=== PATIENT | female | born 1950 | race Caucasian/White ===

== ENCOUNTER 2017-09-17 17:56 | Inpatient (IN) | payer MEDICARE ==
[~2017-09-17] VITALS: Ht 160 cm; Wt 84.1 kg
[2017-09-17] MEDS ORDERED: ondansetron/PF 4mg/2ml inj IV ONE (18:10)
[2017-09-17] MEDS ORDERED: normal saline 1000ML IV soln IV ONE (18:10)
[2017-09-17] MEDS ORDERED: HYDROmorphone 1 mg/ml syringe IV ONE (18:10)
[2017-09-17] MEDS ORDERED: ampicillin/sulbac 3gm/NS 100ml 100 ML IV ONE (18:45)
[2017-09-17 19:41] LABS: INR 1.1 INR; PARTIAL THROMBOPLASTIN TIME 28 SECONDS (22-32); PROTHROMBIN TIME 11.3 SECONDS (9.0-12.0)
[2017-09-17] MEDS ORDERED: magnesium hydroxide 30ml (MOM) UD suspension PO PRN (21:20)
[2017-09-17] MEDS ORDERED: HYDROmorphone 1 mg/ml syringe IV PRN ×2 (21:20)
[2017-09-17] MEDS ORDERED: mag hydrox/Alum hydrox/simeth 30ml oral suspension PO PRN (21:20)
[2017-09-17] MEDS ORDERED: ondansetron/PF 4mg/2ml inj IV PRN (21:20)
[2017-09-17] MEDS ORDERED: OXYC20TA71 PO (21:30)
[2017-09-17] MEDS ORDERED: PRAZ5CAP PO (21:30)
[2017-09-17] MEDS ORDERED: TEMA30CA5 PO (21:30)
[2017-09-17] MEDS ORDERED: DIPH-423 PO (21:30)
[2017-09-17] MEDS ORDERED: PRAZ5CAP2 PO (21:37)
[2017-09-17] MEDS ORDERED: DIPH25CA83 PO (21:37)
[2017-09-17] MEDS ORDERED: ALBU0.63 NEB (21:37)
[2017-09-17] MEDS ORDERED: CETI10TA15 PO (21:42)
[2017-09-17] MEDS ORDERED: TIOT18CA3 (21:42)
[2017-09-17] MEDS ORDERED: HYDR-3686 PO (21:42)
[2017-09-17] MEDS ORDERED: PALI3TAB PO ×2 (21:42)
[2017-09-17] MEDS: normal saline 1000ml 1,000 ML IV SCH (21:49)
[2017-09-18] VITALS (18 sets, daily range): BP systolic 100–140; BP diastolic 62–87
[2017-09-18] MEDS ORDERED: hydrOXYzine 25 MG tablet PO PRN (01:05)
[2017-09-18 05:29] LABS: BASOPHILS % (AUTO) 0.3 % (0-1); EOSINOPHILS # (AUTO) 0.1 X10'3 (0-0.9); EOSINOPHILS % (AUTO) 1.1 % (0-6); HEMATOCRIT 29.2 % (35.0-45.0); HEMOGLOBIN 9.7 g/dl (12.0-16.0); LYMPHOCYTES # (AUTO) 1.2 X10'3 (1.1-4.8); MEAN CORPUSCULAR HGB CONC 33.4 % (33.0-36.5); MEAN CORPUSCULAR VOLUME 86.8 FL (78-98); MEAN PLATELET VOLUME 8.6 FL (7.4-10.4); MONOCYTES # (AUTO) 0.8 X10'3 (0-0.9); MONOCYTES % (AUTO) 9.2 % (2-12); NEUTROPHILS # (AUTO) 6.9 X10'3 (1.8-7.7); NEUTROPHILS % (AUTO) 76.4 % (42-75); PLATELET COUNT 232 X10'3 (140-440); RED BLOOD COUNT 3.36 X10'6 (4.20-5.60); RED CELL DISTRIBUTION WIDTH 13.4 % (11.5-14.5); WHITE BLOOD COUNT 9.1 X10'3 (4.5-11.0)
[2017-09-18 05:50] LABS: ALANINE AMINOTRANSFERASE 100 U/L (12-78); ALBUMIN 3.3 G/DL (3.4-5.0); ALBUMIN/GLOBULIN RATIO 0.9 (1.1-1.5); ALKALINE PHOSPHATASE 153 IU/L (46-116); ANION GAP 9 (8-16); ASPARTATE AMINO TRANSFERASE 44 U/L (10-37); BILIRUBIN,TOTAL 2.1 MG/DL (0.1-1.0); BLOOD UREA NITROGEN 22 MG/DL (7-18); BUN/CREATININE RATIO 24.7 (6.6-38.0); CALCIUM 8.7 MG/DL (8.5-10.1); CHLORIDE 100 MMOL/L (99-107); CREATININE 0.89 MG/DL (0.40-0.90); GLUCOSE 116 MG/DL (70-104); POTASSIUM 3.4 MMOL/L (3.5-5.1); SODIUM 137 MMOL/L (135-145); TOTAL CARBON DIOXIDE 27.6 MMOL/L (24-32); eGFR 63 ML/MIN
[2017-09-18] MEDS: prazosin 5mg capsule PO SCH (07:58)
[2017-09-18] MEDS: cetirizine 10mg tablet PO SCH (07:59)
[2017-09-18] MEDS ORDERED: PALIPERIDONE PO SCH (08:00)
[2017-09-18] MEDS: normal saline 1000ml 1,000 ML IV SCH ×2 (08:00→21:36)
[2017-09-18] MEDS ORDERED: magnesium 2GM in 50ml NS 50 ML IV PRN (09:35)
[2017-09-18] MEDS ORDERED: potassium Cl 40MEQ/NS 500ml 500 ML IV PRN ×2 (09:35)
[2017-09-18] MEDS ORDERED: magnesium 4gm in 100ml NS 100 ML IV PRN (09:35)
[2017-09-18] MEDS ORDERED: potassium Cl 20 mEq SR tablet PO PRN (09:35)
[2017-09-18] MEDS ORDERED: magnesium Cl slow-release 64mg tablet PO PRN (09:35)
[2017-09-18] MEDS: potassium Cl 20 mEq SR tablet PO PRN ×2 (10:02→16:50)
[2017-09-18] MEDS ORDERED: meperidine/PF 100mg/ml syringe ONE (10:08)
[2017-09-18] MEDS ORDERED: LIDOcaine Viscous 15ml cup ONE (10:09)
[2017-09-18] MEDS ORDERED: levoFLOXACIN-Levaquin 500mg/D5 100 ML IV ONE (10:09)
[2017-09-18] MEDS ORDERED: MIDAZolam 1mg/ml 10ml vial ONE (10:09)
[2017-09-18] MEDS ORDERED: fentaNYL/PF 50MCG/1 ML 2ML syringe ONE (10:09)
[2017-09-18] MEDS ORDERED: diphenhydrAMINE 50 mg/ml inj ONE (10:09)
[2017-09-18] MEDS ORDERED: glucagon, human recombinant 1mg kit ONE (10:10)
[2017-09-18] MEDS ORDERED: iohexol 300 MG/1 ML 50ml polymer ONE (10:10)
[2017-09-18] MEDS: levoFLOXACIN-Levaquin 500mg/D5 100 ML IV SCH (14:23)
[2017-09-18] MEDS ORDERED: PALIPERIDONE 3 MG TAB.ER.24 PO SCH (21:00)
[2017-09-18] MEDS: temazepam 15mg capsule PO SCH (21:00)
[2017-09-19] VITALS: BP 130/81
[2017-09-19] MEDS: temazepam 15mg capsule PO SCH (01:41)
[2017-09-19] MEDS: normal saline 1000ml 1,000 ML IV SCH (03:18)
[2017-09-19 05:43] LABS: BASOPHILS % (AUTO) 0.4 % (0-1); EOSINOPHILS # (AUTO) 0.3 X10'3 (0-0.9); EOSINOPHILS % (AUTO) 5.4 % (0-6); HEMATOCRIT 24.9 % (35.0-45.0); HEMOGLOBIN 8.3 g/dl (12.0-16.0); LYMPHOCYTES % (AUTO) 33.9 % (21-51); MEAN CORPUSCULAR HEMOGLOBIN 28.7 PG (27.0-31.0); MEAN CORPUSCULAR HGB CONC 33.2 % (33.0-36.5); MEAN CORPUSCULAR VOLUME 86.4 FL (78-98); MEAN PLATELET VOLUME 8.1 FL (7.4-10.4); MONOCYTES # (AUTO) 0.7 X10'3 (0-0.9); NEUTROPHILS # (AUTO) 2.9 X10'3 (1.8-7.7); NEUTROPHILS % (AUTO) 48.3 % (42-75); PLATELET COUNT 258 X10'3 (140-440); RED BLOOD COUNT 2.88 X10'6 (4.20-5.60); RED CELL DISTRIBUTION WIDTH 13.3 % (11.5-14.5); WHITE BLOOD COUNT 5.9 X10'3 (4.5-11.0)
[2017-09-19 06:05] LABS: ALANINE AMINOTRANSFERASE 64 U/L (12-78); ALBUMIN 2.6 G/DL (3.4-5.0); ALBUMIN/GLOBULIN RATIO 0.8 (1.1-1.5); ALKALINE PHOSPHATASE 115 IU/L (46-116); ANION GAP 9 (8-16); ASPARTATE AMINO TRANSFERASE 23 U/L (10-37); BLOOD UREA NITROGEN 14 MG/DL (7-18); BUN/CREATININE RATIO 16.3 (6.6-38.0); CHLORIDE 109 MMOL/L (99-107); CREATININE 0.86 MG/DL (0.40-0.90); GLUCOSE 84 MG/DL (70-104); POTASSIUM 3.3 MMOL/L (3.5-5.1); SODIUM 142 MMOL/L (135-145); TOTAL CARBON DIOXIDE 24.4 MMOL/L (24-32); TOTAL PROTEIN 5.8 G/DL (6.4-8.2); eGFR 66 ML/MIN
[2017-09-19 08:00] VITALS: BP 155/83
[2017-09-19] MEDS: levoFLOXACIN-Levaquin 500mg/D5 100 ML IV SCH (08:08)
[2017-09-19] MEDS: cetirizine 10mg tablet PO SCH (08:08)
[2017-09-19] MEDS: prazosin 5mg capsule PO SCH (08:09)
[2017-09-19 11:00] VITALS: BP 120/67
[2017-09-19] MEDS: potassium Cl 20 mEq SR tablet PO PRN (13:14)
[2017-09-19] MEDS ORDERED: potassium Cl 40MEQ/NS 500ml 500 ML IV PRN ×2 (13:15)
[2017-09-19] MEDS ORDERED: potassium Cl 20 mEq SR tablet PO PRN ×2 (13:15)
== END 2017-09-19 15:56 | disposition home or self-care (01) | DRG 394 ==
LOC: ER 17:57 → ED HOLD 21:18 → SUR 3N 23:15
PROVIDERS: ADMIT Internal Medicine; ATTEND Family Medicine
PROC: BF111ZZ Fluoroscopy of Biliary and Pancreatic Ducts using Low Osmolar Contrast (ICD-10-PCS; principal; 2017-09-18)
PROC: 0F798ZZ Dilation of Common Bile Duct, Via Natural or Artificial Opening Endoscopic (ICD-10-PCS; 2017-09-18)
DX: K91.89 Other postprocedural complications and disorders of digestive system (principal); N17.9 Acute kidney failure, unspecified; K76.0 Fatty (change of) liver, not elsewhere classified; D64.9 Anemia, unspecified; K59.00 Constipation, unspecified; M79.7 Fibromyalgia; E86.0 Dehydration; F43.10 Post-traumatic stress disorder, unspecified; E87.6 Hypokalemia; J30.1 Allergic rhinitis due to pollen; Y83.8 Other surgical procedures as the cause of abnormal reaction of the patient, or of later complication, without mention of misadventure at the time of the procedure; M54.9 Dorsalgia, unspecified; M19.90 Unspecified osteoarthritis, unspecified site; Z90.49 Acquired absence of other specified parts of digestive tract; Z91.018 Allergy to other foods; Z91.040 Latex allergy status; Z88.8 Allergy status to other drugs, medicaments and biological substances
CPT/HCPCS: 36415; 71045; 76700; 80053; 83605; 83735; 85025; 85610; 85730; 87040; 87070; 93005; 96361; 96365; 96375; 99285; A4620; G0500; J0295; J1170; J1200; J1610; J1956; J2175; J2250; J2405; J3010; J7030; Q9967

== ENCOUNTER 2017-09-27 16:13 | Inpatient (IN) | payer MEDICARE ==
[~2017-09-27] VITALS: Ht 160 cm; Wt 84.0 kg
[~2017-09-27 16:13] MED LIST: ALBU0.63 NEB; HYDR-3686 PO; OXYC20TA71 PO; PALI3TAB PO; PRAZ5CAP2 PO; TEMA30CA5 PO; TIOT18CA3
[2017-09-27] MEDS ORDERED: normal saline 1000ML IV soln IV ONE (17:50)
[2017-09-27] MEDS ORDERED: ondansetron/PF 4mg/2ml inj IV ONE ×2 (17:50→21:10)
[2017-09-27] MEDS ORDERED: piperacillin/tazo 3.375gm/50ml 50 ML IV ONE (17:55)
[2017-09-27] MEDS ORDERED: iohexol 300mg/ml 100ml inj. ONE (18:19)
[2017-09-27 18:41] LABS: INR 1.2 INR; PARTIAL THROMBOPLASTIN TIME 36 SECONDS (22-32); PROTHROMBIN TIME 12.4 SECONDS (9.0-12.0)
[2017-09-27 19:10] LABS: MAGNESIUM 2.1 MG/DL (1.5-2.4)
[2017-09-27] MEDS: HYDROmorphone 1 mg/ml syringe IV PRN ×3 (19:21→22:17)
[2017-09-27 20:09] LABS: CLARITY,URINE SLIGHTLY CLOUDY (Clear); GLUCOSE, URINE NEGATIVE (Neg); KETONES,URINE NEGATIVE (Neg); LEUKOCYTE ESTERASE ,URINE NEGATIVE (Neg); NITRITES, URINE NEGATIVE (Neg); OCCULT BLOOD,URINE MODERATE (Neg); PROTEIN,URINE 100 mg/dl (Neg)
[2017-09-27 20:11] LABS: UA COLLECTION TYPE CLN CATCH MIDSTREAM
[2017-09-27 20:12] LABS: COLOR,URINE DARK YELLOW (Yellow)
[2017-09-27 20:33] LABS: BACTERIA,URINE NONE SEEN /HPF (Neg); MUCUS STRANDS FEW /LPF (Neg); RBC,URINE 0-2 /HPF (0-2); SQUAMOUS EPITHELIAL CELL,UR FEW /LPF (FEW); TRANSITIONAL EPI CELLS,URINE FEW /HPF; WBC,URINE 0-4 /HPF (0-4)
[2017-09-27] MEDS ORDERED: magnesium 4gm in 100ml NS 100 ML IV PRN (22:40)
[2017-09-27] MEDS ORDERED: potassium Cl 20 mEq SR tablet PO PRN (22:40)
[2017-09-27] MEDS ORDERED: magnesium Cl slow-release 64mg tablet PO PRN (22:40)
[2017-09-27] MEDS ORDERED: magnesium 2GM in 50ml NS 50 ML IV PRN (22:40)
[2017-09-27] MEDS ORDERED: ipratropium/albuterol 3ml nebule NEB PRN (22:40)
[2017-09-27] MEDS ORDERED: magnesium hydroxide 30ml (MOM) UD suspension PO PRN (22:40)
[2017-09-27] MEDS ORDERED: acetaminophen 325mg tablet PO PRN (22:40)
[2017-09-27] MEDS ORDERED: potassium Cl 40MEQ/NS 500ml 500 ML IV PRN ×2 (22:40)
[2017-09-27] MEDS ORDERED: mag hydrox/Alum hydrox/simeth 30ml oral suspension PO PRN (22:40)
[2017-09-27] MEDS ORDERED: albuterol 2.5 MG/3 ML nebule NEB PRN (22:40)
[2017-09-27] MEDS ORDERED: temazepam 15mg capsule PO SCH (22:45)
[2017-09-28] VITALS: BP 141/62
[2017-09-28] MEDS: temazepam 15mg capsule PO PRN ×2 (00:37→22:29)
[2017-09-28] MEDS: normal saline 1000ml 1,000 ML IV SCH ×3 (00:38→14:38)
[2017-09-28] MEDS: metroNIDAZOLE-Flagyl 500mg/NS 100 ML IV SCH ×2 (00:38→09:32)
[2017-09-28] MEDS: HYDROmorphone 1 mg/ml syringe IV PRN ×5 (00:44→19:50)
[2017-09-28] MEDS: ondansetron/PF 4mg/2ml inj IV PRN ×3 (04:49→19:58)
[2017-09-28 05:26] LABS: BASOPHILS % (AUTO) 0.2 % (0-1); EOSINOPHILS # (AUTO) 0.1 X10'3 (0-0.9); EOSINOPHILS % (AUTO) 0.3 % (0-6); HEMATOCRIT 23.1 % (35.0-45.0); HEMOGLOBIN 7.9 g/dl (12.0-16.0); LYMPHOCYTES # (AUTO) 1.2 X10'3 (1.1-4.8); LYMPHOCYTES % (AUTO) 6.4 % (21-51); MEAN CORPUSCULAR HEMOGLOBIN 28.9 PG (27.0-31.0); MEAN CORPUSCULAR HGB CONC 34.3 % (33.0-36.5); MEAN CORPUSCULAR VOLUME 84.2 FL (78-98); MEAN PLATELET VOLUME 7.7 FL (7.4-10.4); MONOCYTES # (AUTO) 1.3 X10'3 (0-0.9); NEUTROPHILS # (AUTO) 15.9 X10'3 (1.8-7.7); NEUTROPHILS % (AUTO) 86.1 % (42-75); PLATELET COUNT 388 X10'3 (140-440); RED BLOOD COUNT 2.74 X10'6 (4.20-5.60); RED CELL DISTRIBUTION WIDTH 12.8 % (11.5-14.5); WHITE BLOOD COUNT 18.5 X10'3 (4.5-11.0)
[2017-09-28 05:38] LABS: ALANINE AMINOTRANSFERASE 22 U/L (12-78); ALBUMIN 2.3 G/DL (3.4-5.0); ALBUMIN/GLOBULIN RATIO 0.6 (1.1-1.5); ALKALINE PHOSPHATASE 227 IU/L (46-116); ANION GAP 9 (8-16); ASPARTATE AMINO TRANSFERASE 14 U/L (10-37); BILIRUBIN,TOTAL 1.3 MG/DL (0.1-1.0); BLOOD UREA NITROGEN 9 MG/DL (7-18); CALCIUM 7.8 MG/DL (8.5-10.1); CHLORIDE 105 MMOL/L (99-107); GLUCOSE 107 MG/DL (70-104); MAGNESIUM 1.8 MG/DL (1.5-2.4); POTASSIUM 3.4 MMOL/L (3.5-5.1); SODIUM 136 MMOL/L (135-145); TOTAL CARBON DIOXIDE 21.8 MMOL/L (24-32); eGFR 63 ML/MIN
[2017-09-28] MEDS: LACTOBACILLUS RHAMNOSUS GG 15 billion unit sprinkle caps PO SCH (07:30)
[2017-09-28 08:00] VITALS: BP 138/77
[2017-09-28] MEDS: PALIPERIDONE 1.5 MG PO SCH ×3 (08:00→21:59)
[2017-09-28] MEDS: K and/or MAG REPLACEMENT MC SCH (08:00)
[2017-09-28] MEDS ORDERED: CETI10TA14 PO (09:41)
[2017-09-28] MEDS ORDERED: BENZ1TAB7 PO (09:41)
[2017-09-28 10:15] VITALS: BP 141/72
[2017-09-28] MEDS: prazosin 5mg capsule PO SCH (10:49)
[2017-09-28] MEDS: piperacillin/tazo 4.5gm/100ml 100 ML IV SCH ×2 (10:49→17:10)
[2017-09-28 11:00] VITALS: BP 145/75
[2017-09-28 20:00] VITALS: BP 129/64
[2017-09-28] MEDS: PALIPERIDONE 3 MG TAB.ER.24 PO SCH (21:59)
[2017-09-29] VITALS: BP 138/65
[2017-09-29] MEDS: piperacillin/tazo 4.5gm/100ml 100 ML IV SCH ×3 (00:09→16:41)
[2017-09-29 04:51] LABS: BASOPHILS % (AUTO) 0.1 % (0-1); EOSINOPHILS # (AUTO) 0.3 X10'3 (0-0.9); EOSINOPHILS % (AUTO) 2.5 % (0-6); HEMATOCRIT 23.6 % (35.0-45.0); HEMOGLOBIN 7.8 g/dl (12.0-16.0); LYMPHOCYTES # (AUTO) 1.3 X10'3 (1.1-4.8); LYMPHOCYTES % (AUTO) 10.4 % (21-51); MEAN CORPUSCULAR HEMOGLOBIN 27.9 PG (27.0-31.0); MEAN CORPUSCULAR HGB CONC 32.9 % (33.0-36.5); MEAN CORPUSCULAR VOLUME 84.8 FL (78-98); MEAN PLATELET VOLUME 7.4 FL (7.4-10.4); MONOCYTES # (AUTO) 0.9 X10'3 (0-0.9); MONOCYTES % (AUTO) 7.2 % (2-12); NEUTROPHILS # (AUTO) 9.8 X10'3 (1.8-7.7); NEUTROPHILS % (AUTO) 79.8 % (42-75); PLATELET COUNT 425 X10'3 (140-440); RED BLOOD COUNT 2.78 X10'6 (4.20-5.60); RED CELL DISTRIBUTION WIDTH 14.2 % (11.5-14.5); WHITE BLOOD COUNT 12.3 X10'3 (4.5-11.0)
[2017-09-29 05:16] LABS: ALANINE AMINOTRANSFERASE 69 U/L (12-78); ALBUMIN 2.1 G/DL (3.4-5.0); ALBUMIN/GLOBULIN RATIO 0.5 (1.1-1.5); ALKALINE PHOSPHATASE 218 IU/L (46-116); ANION GAP 10 (8-16); ASPARTATE AMINO TRANSFERASE 74 U/L (10-37); BILIRUBIN,TOTAL 1.1 MG/DL (0.1-1.0); BLOOD UREA NITROGEN 7 MG/DL (7-18); BUN/CREATININE RATIO 8.8 (6.6-38.0); CALCIUM 8.4 MG/DL (8.5-10.1); CHLORIDE 108 MMOL/L (99-107); GLUCOSE 103 MG/DL (70-104); MAGNESIUM 1.9 MG/DL (1.5-2.4); POTASSIUM 3.4 MMOL/L (3.5-5.1); SODIUM 140 MMOL/L (135-145); TOTAL CARBON DIOXIDE 22.2 MMOL/L (24-32); eGFR 72 ML/MIN
[2017-09-29] MEDS: potassium Cl 20 mEq SR tablet PO PRN ×2 (07:39→22:41)
[2017-09-29] MEDS: PALIPERIDONE 1.5 MG PO SCH ×2 (07:39→12:15)
[2017-09-29] MEDS: LACTOBACILLUS RHAMNOSUS GG 15 billion unit sprinkle caps PO SCH (07:39)
[2017-09-29] MEDS: prazosin 5mg capsule PO SCH (07:39)
[2017-09-29] MEDS: HYDROmorphone 1 mg/ml syringe IV PRN ×2 (07:40→12:07)
[2017-09-29] MEDS: ondansetron/PF 4mg/2ml inj IV PRN ×3 (07:40→22:22)
[2017-09-29] MEDS: K and/or MAG REPLACEMENT MC SCH (07:51)
[2017-09-29 08:00] VITALS: BP 152/88
[2017-09-29 11:34] VITALS: BP 142/75
[2017-09-29] MEDS ORDERED: HYDROmorphone 1 mg/ml syringe IV PRN (13:20)
[2017-09-29] MEDS ORDERED: HYDROmorphone inj. 0.5 MG/0.5 ML DISP.SYRIN ONE ×2 (16:31→22:11)
[2017-09-29 20:00] VITALS: BP 159/84
[2017-09-29] MEDS: PALIPERIDONE 3 MG TAB.ER.24 PO SCH (21:13)
[2017-09-29] MEDS: temazepam 15mg capsule PO PRN (22:22)
[2017-09-30] VITALS: BP 139/64
[2017-09-30] MEDS: piperacillin/tazo 4.5gm/100ml 100 ML IV SCH ×3 (00:23→16:18)
[2017-09-30] MEDS ORDERED: HYDROmorphone inj. 0.5 MG/0.5 ML DISP.SYRIN ONE ×2 (02:19→07:33)
[2017-09-30 05:34] LABS: BASOPHILS % (AUTO) 0.2 % (0-1); EOSINOPHILS # (AUTO) 0.4 X10'3 (0-0.9); EOSINOPHILS % (AUTO) 4.8 % (0-6); HEMATOCRIT 24.9 % (35.0-45.0); LYMPHOCYTES # (AUTO) 1.4 X10'3 (1.1-4.8); LYMPHOCYTES % (AUTO) 18.7 % (21-51); MEAN CORPUSCULAR HEMOGLOBIN 27.3 PG (27.0-31.0); MEAN CORPUSCULAR HGB CONC 32.2 % (33.0-36.5); MEAN CORPUSCULAR VOLUME 84.8 FL (78-98); MEAN PLATELET VOLUME 7.4 FL (7.4-10.4); MONOCYTES # (AUTO) 0.9 X10'3 (0-0.9); MONOCYTES % (AUTO) 11.8 % (2-12); NEUTROPHILS # (AUTO) 4.9 X10'3 (1.8-7.7); NEUTROPHILS % (AUTO) 64.5 % (42-75); PLATELET COUNT 463 X10'3 (140-440); RED BLOOD COUNT 2.93 X10'6 (4.20-5.60); RED CELL DISTRIBUTION WIDTH 14.2 % (11.5-14.5); WHITE BLOOD COUNT 7.6 X10'3 (4.5-11.0)
[2017-09-30 06:29] LABS: ALANINE AMINOTRANSFERASE 74 U/L (12-78); ALBUMIN 2.2 G/DL (3.4-5.0); ALBUMIN/GLOBULIN RATIO 0.6 (1.1-1.5); ALKALINE PHOSPHATASE 242 IU/L (46-116); ANION GAP 10 (8-16); ASPARTATE AMINO TRANSFERASE 48 U/L (10-37); BILIRUBIN,TOTAL 0.9 MG/DL (0.1-1.0); BLOOD UREA NITROGEN 5 MG/DL (7-18); BUN/CREATININE RATIO 7.1 (6.6-38.0); CALCIUM 8.6 MG/DL (8.5-10.1); CHLORIDE 107 MMOL/L (99-107); GLUCOSE 90 MG/DL (70-104); MAGNESIUM 2.1 MG/DL (1.5-2.4); POTASSIUM 3.7 MMOL/L (3.5-5.1); SODIUM 140 MMOL/L (135-145); TOTAL PROTEIN 6.2 G/DL (6.4-8.2); eGFR 84 ML/MIN
[2017-09-30] MEDS ORDERED: PALIPERIDONE 1.5 MG PO SCH (07:00)
[2017-09-30 07:27] VITALS: BP 155/76
[2017-09-30] MEDS: LACTOBACILLUS RHAMNOSUS GG 15 billion unit sprinkle caps PO SCH (07:49)
[2017-09-30] MEDS: PALIPERIDONE 1.5 MG PO SCH ×3 (07:51→16:18)
[2017-09-30] MEDS: prazosin 5mg capsule PO SCH (07:53)
[2017-09-30] MEDS: K and/or MAG REPLACEMENT MC SCH (07:54)
[2017-09-30] MEDS ORDERED: HYDROcodone/acetaminophen 5mg/325mg tablet PO PRN (11:20)
[2017-09-30] MEDS: ondansetron/PF 4mg/2ml inj IV PRN (11:35)
[2017-09-30 11:56] VITALS: BP 121/69
[2017-09-30] MEDS ORDERED: oxyCODONE/APAP 5-325mg tablet PO PRN (17:10)
[2017-09-30] MEDS: oxyCODONE/APAP 10/325mg tablet PO PRN ×2 (17:47→21:33)
[2017-09-30 19:00] VITALS: BP 125/68
[2017-09-30] MEDS: PALIPERIDONE 3 MG TAB.ER.24 PO SCH (21:03)
[2017-09-30] MEDS: temazepam 15mg capsule PO PRN ×2 (21:38→22:57)
[2017-09-30 23:00] VITALS: BP 132/74
[2017-10-01] MEDS: piperacillin/tazo 4.5gm/100ml 100 ML IV SCH ×3 (00:26→16:00)
[2017-10-01] MEDS: oxyCODONE/APAP 10/325mg tablet PO PRN ×4 (01:37→15:46)
[2017-10-01 05:29] LABS: BASOPHILS % (AUTO) 0.8 % (0-1); EOSINOPHILS # (AUTO) 0.3 X10'3 (0-0.9); EOSINOPHILS % (AUTO) 4.7 % (0-6); HEMATOCRIT 24.2 % (35.0-45.0); HEMOGLOBIN 8.1 g/dl (12.0-16.0); LYMPHOCYTES # (AUTO) 1.5 X10'3 (1.1-4.8); LYMPHOCYTES % (AUTO) 22.8 % (21-51); MEAN CORPUSCULAR HEMOGLOBIN 27.9 PG (27.0-31.0); MEAN CORPUSCULAR HGB CONC 33.4 % (33.0-36.5); MEAN CORPUSCULAR VOLUME 83.7 FL (78-98); MEAN PLATELET VOLUME 7.4 FL (7.4-10.4); MONOCYTES # (AUTO) 0.9 X10'3 (0-0.9); MONOCYTES % (AUTO) 14.6 % (2-12); NEUTROPHILS # (AUTO) 3.6 X10'3 (1.8-7.7); NEUTROPHILS % (AUTO) 57.1 % (42-75); PLATELET COUNT 492 X10'3 (140-440); RED CELL DISTRIBUTION WIDTH 13.7 % (11.5-14.5); WHITE BLOOD COUNT 6.4 X10'3 (4.5-11.0)
[2017-10-01 05:46] LABS: ALANINE AMINOTRANSFERASE 78 U/L (12-78); ALBUMIN 2.3 G/DL (3.4-5.0); ALBUMIN/GLOBULIN RATIO 0.6 (1.1-1.5); ALKALINE PHOSPHATASE 259 IU/L (46-116); ANION GAP 10 (8-16); ASPARTATE AMINO TRANSFERASE 25 U/L (10-37); BLOOD UREA NITROGEN 6 MG/DL (7-18); BUN/CREATININE RATIO 7.5 (6.6-38.0); CHLORIDE 106 MMOL/L (99-107); GLUCOSE 87 MG/DL (70-104); POTASSIUM 3.5 MMOL/L (3.5-5.1); SODIUM 142 MMOL/L (135-145); TOTAL PROTEIN 6.4 G/DL (6.4-8.2); eGFR 72 ML/MIN
[2017-10-01 07:31] VITALS: BP 124/59
[2017-10-01] MEDS: LACTOBACILLUS RHAMNOSUS GG 15 billion unit sprinkle caps PO SCH (07:39)
[2017-10-01] MEDS: PALIPERIDONE 1.5 MG PO SCH ×2 (07:39→11:21)
[2017-10-01] MEDS: prazosin 5mg capsule PO SCH (07:40)
[2017-10-01] MEDS: K and/or MAG REPLACEMENT MC SCH (07:41)
[2017-10-01 11:47] VITALS: BP 107/51
[2017-10-01] MEDS ORDERED: CIPR-230 PO (14:45)
[2017-10-01] MEDS ORDERED: METR500T4 PO (14:45)
== END 2017-10-01 16:41 | disposition home or self-care (01) | DRG 872 ==
LOC: ER 16:13 → ED HOLD 22:38 → SUR 3N 23:58
PROVIDERS: ADMIT Internal Medicine; ATTEND Internal Medicine
PROC: BW211ZZ Computerized Tomography (CT Scan) of Abdomen and Pelvis using Low Osmolar Contrast (ICD-10-PCS; principal; 2017-09-27)
DX: A41.9 Sepsis, unspecified organism (principal); K83.0 Cholangitis; E87.2 Acidosis; D68.9 Coagulation defect, unspecified; D64.9 Anemia, unspecified; F41.9 Anxiety disorder, unspecified; D47.3 Essential (hemorrhagic) thrombocythemia; F43.10 Post-traumatic stress disorder, unspecified; J44.9 Chronic obstructive pulmonary disease, unspecified; M79.7 Fibromyalgia; Z90.49 Acquired absence of other specified parts of digestive tract; Z88.8 Allergy status to other drugs, medicaments and biological substances; Z91.040 Latex allergy status; Z91.018 Allergy to other foods; Z79.899 Other long term (current) drug therapy
CPT/HCPCS: 36415; 71045; 74177; 74181; 80053; 81001; 83605; 83690; 83735; 84145; 85025; 85610; 85730; 87040; 87070; 93005; 94760; 96361; 96365; 96375; 96376; 99285; A6258; J1170; J2270; J2405; J2543; J3480; J3490; J7030; Q9967

== ENCOUNTER 2021-11-28 16:48 | Emergency (ER) | payer MEDICARE ==
[~2021-11-28] VITALS: Ht 167.6 cm; Wt 69.0 kg
[~2021-11-28 16:48] MED LIST changes: +BENZ1TAB7 PO; +CETI10TA14 PO; -OXYC20TA71 PO; +OXYC20TA78 PO; -PRAZ5CAP2 PO; -TIOT18CA3
[2021-11-28] MEDS ORDERED: normal saline 1000ML IV soln IVB ONE ×2 (17:25→17:35)
[2021-11-28 18:00] LABS: BASOPHILS # (AUTO) 0.1 X10'3 (0-0.2); BASOPHILS % (AUTO) 0.7 % (0-1); EOSINOPHILS # (AUTO) 0.2 X10'3 (0-0.9); EOSINOPHILS % (AUTO) 2.9 % (0-6); HEMATOCRIT 43.2 % (35.0-45.0); HEMOGLOBIN 14.5 g/dl (12.0-16.0); LYMPHOCYTES # (AUTO) 2.7 X10'3 (1.1-4.8); MEAN CORPUSCULAR HEMOGLOBIN 28.1 PG (27.0-31.0); MEAN CORPUSCULAR HGB CONC 33.5 g/dL (33.0-36.5); MEAN CORPUSCULAR VOLUME 83.7 FL (78-98); MEAN PLATELET VOLUME 8.4 FL (7.4-10.4); MONOCYTES # (AUTO) 0.9 X10'3 (0-0.9); MONOCYTES % (AUTO) 10.8 % (2-12); NEUTROPHILS # (AUTO) 4.3 X10'3 (1.8-7.7); NEUTROPHILS % (AUTO) 52.6 % (42-75); PLATELET COUNT 327 X10'3 (140-440); RED BLOOD COUNT 5.16 X10'6 (4.20-5.60); RED CELL DISTRIBUTION WIDTH 13.7 % (11.5-14.5); WHITE BLOOD COUNT 8.2 X10'3 (4.5-11.0)
--- NOTE | 2021-11-28 19:13 | NUR ---
pt on bedside commade but unable to provide urine
[2021-11-28 19:15] LABS: ALANINE AMINOTRANSFERASE 28 U/L (12-78); ALBUMIN 3.8 G/DL (3.4-5.0); ALBUMIN/GLOBULIN RATIO 1.1 (1.1-1.5); ALKALINE PHOSPHATASE 71 IU/L (46-116); ANION GAP 16 (8-16); ASPARTATE AMINO TRANSFERASE 24 U/L (10-37); BILIRUBIN,TOTAL 0.7 MG/DL (0.1-1.0); BLOOD UREA NITROGEN 13 MG/DL (7-18); BUN/CREATININE RATIO 15.3 (6.6-38.0); CALCIUM 9.5 MG/DL (8.5-10.1); CHLORIDE 103 MMOL/L (99-107); CREATININE 0.85 MG/DL (0.40-0.90); GLUCOSE 107 MG/DL (70-104); SODIUM 143 MMOL/L (135-145); TOTAL CARBON DIOXIDE 24.1 MMOL/L (24-32); TOTAL PROTEIN 7.3 G/DL (6.4-8.2); eGFR 66 ML/MIN
[2021-11-28 19:26] LABS: ETHANOL < 0.010 GM/DL (0.0-0.010)
[2021-11-28 19:29] LABS: POTASSIUM 2.9 MMOL/L (3.5-5.1)
--- NOTE | 2021-11-28 19:41 | NUR ---
pt unable to stand for gait test. doctor aware
[2021-11-28 19:42] LABS: URINE AMPHETAMINE SCREEN NEGATIVE (Neg); URINE BARBITUATE SCREEN NEGATIVE (Neg); URINE BENZODIAZEPINES SCREEN POSITIVE (Neg); URINE CANNABINOID SCREEN NEGATIVE (Neg); URINE COCAINE SCREEN NEGATIVE (Neg); URINE METHADONE SCREEN NEGATIVE (Neg); URINE OPIATE SCREEN POSITIVE (Neg); URINE PHENCYCLIDINE SCREEN NEGATIVE (Neg)
[2021-11-28 19:48] LABS: CLARITY,URINE CLEAR (Clear); GLUCOSE, URINE NEGATIVE (Neg); KETONES,URINE NEGATIVE (Neg); LEUKOCYTE ESTERASE ,URINE NEGATIVE (Neg); NITRITES, URINE NEGATIVE (Neg); OCCULT BLOOD,URINE NEGATIVE (Neg); PH,URINE 5.5 (4.8-8.0); PROTEIN,URINE NEGATIVE (Neg); UROBILINOGEN,URINE 0.2 E.U/dL (0.2-1.0)
[2021-11-28 19:51] LABS: COLOR,URINE DARK YELLOW (Yellow); UA COLLECTION TYPE STRAIGHT CATH
[2021-11-28] MEDS ORDERED: POTASSIUM CHLORIDE 20 MEQ/15 ML oral solution PO ONE (19:55)
[2021-11-28] MEDS ORDERED: potassium Cl 20 mEq SR tablet PO ONE (20:05)
[2021-11-28 21:31] VITALS: BP 160/79
== END 2021-11-28 21:33 | disposition home or self-care (01) ==
LOC: ER 16:49
DX: R53.1 Weakness (principal); I50.9 Heart failure, unspecified; K21.9 Gastro-esophageal reflux disease without esophagitis; G89.29 Other chronic pain; M79.7 Fibromyalgia; Z90.49 Acquired absence of other specified parts of digestive tract; F95.2 Tourette's disorder; Z88.8 Allergy status to other drugs, medicaments and biological substances; Z91.040 Latex allergy status; Z91.010 Allergy to peanuts; Z79.899 Other long term (current) drug therapy
CPT/HCPCS: 36415; 71045; 80053; 80305; 80320; 81003; 82140; 85025; 93005; 96360; 99285; J7030

== ENCOUNTER 2022-06-13 17:54 | Emergency (ER) | payer MEDICARE ==
[~2022-06-13] VITALS: Ht 160 cm; Wt 69.1 kg
[2022-06-13 17:55] VITALS: BP 193/87
[2022-06-13 18:21] LABS: BASOPHILS # (AUTO) 0.1 X10'3 (0-0.2); BASOPHILS % (AUTO) 0.6 % (0-1); EOSINOPHILS % (AUTO) 0.3 % (0-6); HEMATOCRIT 46.4 % (35.0-45.0); HEMOGLOBIN 15.6 g/dl (12.0-16.0); LYMPHOCYTES # (AUTO) 2.1 X10'3 (1.1-4.8); LYMPHOCYTES % (AUTO) 19.1 % (21-51); MEAN CORPUSCULAR HEMOGLOBIN 28.9 PG (27.0-31.0); MEAN CORPUSCULAR HGB CONC 33.7 g/dL (33.0-36.5); MEAN CORPUSCULAR VOLUME 85.8 FL (78-98); MEAN PLATELET VOLUME 8.3 FL (7.4-10.4); MONOCYTES # (AUTO) 0.7 X10'3 (0-0.9); MONOCYTES % (AUTO) 6.4 % (2-12); NEUTROPHILS % (AUTO) 73.6 % (42-75); PLATELET COUNT 315 X10'3 (140-440); RED CELL DISTRIBUTION WIDTH 13.8 % (11.5-14.5); WHITE BLOOD COUNT 10.9 X10'3 (4.5-11.0)
[2022-06-13 18:37] LABS: ALANINE AMINOTRANSFERASE 17 U/L (12-78); ALBUMIN 4.7 G/DL (3.4-5.0); ALBUMIN/GLOBULIN RATIO 1.2 (1.1-1.5); ALKALINE PHOSPHATASE 92 IU/L (46-116); ANION GAP 12 (8-16); ASPARTATE AMINO TRANSFERASE 17 U/L (10-37); BILIRUBIN,TOTAL 1.1 MG/DL (0.1-1.0); BLOOD UREA NITROGEN 17 MG/DL (7-18); BUN/CREATININE RATIO 21.5 (6.6-38.0); CALCIUM 10.7 MG/DL (8.5-10.1); CHLORIDE 102 MMOL/L (99-107); CREATININE 0.79 MG/DL (0.40-0.90); GLUCOSE 119 MG/DL (70-104); POTASSIUM 3.6 MMOL/L (3.5-5.1); SODIUM 137 MMOL/L (135-145); TOTAL CARBON DIOXIDE 23.1 MMOL/L (24-32); TOTAL PROTEIN 8.6 G/DL (6.4-8.2); eGFR 72 ML/MIN
== END 2022-06-13 22:03 | disposition left against medical advice (07) ==
LOC: ER 17:54
DX: I10 Essential (primary) hypertension (principal); Z53.21 Procedure and treatment not carried out due to patient leaving prior to being seen by health care provider
CPT/HCPCS: 36415; 71045; 80053; 83880; 84484; 85025; 93005